=== PATIENT | female | born 1935 | race American Indian/Alaskan Native ===

== ENCOUNTER 2018-09-23 07:21 | Outpatient (CLI) | payer MEDICARE, OTHER | END 2018-09-23 07:22 | disposition home or self-care (01) | LOC: CARDIO 07:21 | DX: I25.10 Atherosclerotic heart disease of native coronary artery without angina pectoris (principal); E11.9 Type 2 diabetes mellitus without complications; Z95.5 Presence of coronary angioplasty implant and graft ==

== ENCOUNTER 2018-10-04 11:04 | Outpatient (CLI) | payer MEDICARE, OTHER | END 2018-10-04 11:05 | disposition home or self-care (01) | LOC: RAD 11:04 ==

== ENCOUNTER 2018-10-28 06:30 | Day surgery (SDC) | payer MEDICARE, OTHER ==
[2018-10-26 15:23] VITALS: BMI 26.9
[2018-10-28] MEDS ORDERED: Nitroglycerin 50mg in D5W 0 MG/0 ML BOTTLE IV ONE (07:03)
[2018-10-28] MEDS ORDERED: Iohexol 350mgl/ml 50 ML ONE (07:03)
[2018-10-28] MEDS ORDERED: Iodixanol 320 MG/ML 100 ML BOTTLE IV ONE (07:03)
[2018-10-28] MEDS ORDERED: Iodixanol 320 MG/ML 200 ML BOTTLE IV ONE (07:03)
[2018-10-28] MEDS ORDERED: Lidocaine 2% Inj (20ml) ONE (07:03)
[2018-10-28 07:09] LABS: BASO # 0.03 K/mm3 (0.0-2.0); BASO % 0.4 % (0.0-3.0); EOS # 0.2 (0.0-0.7); EOS % 2.2 % (1.5-5.0); HEMOGLOBIN 11.5 g/dL (12.0-16.0); LYMPH # 2.8 (1.2-3.4); MEAN CELL VOLUME 87.6 fl (80.0-105.0); MEAN CORPUSCULAR HEMOGLOBIN 27.4 pg (25.0-35.0); MEAN CORPUSCULAR HGB CONC 31.3 g/dl (31.0-37.0); MEAN PLATELET VOLUME 9.8 fl (7.0-11.0); MONO # 0.5 (0.1-0.6); MONO % 7.3 % (1.0-6.0); RBC 4.2 10^6/uL (3.5-6.1); RED CELL DISTRIBUTION WIDTH 15.7 % (11.5-14.5); WHITE BLOOD COUNT 6.7 10^3/uL (4.5-11.0)
[2018-10-28 07:14] LABS: INR 1.14; PROTHROMBIN TIME 12.9 SECONDS (9.4-12.5)
[2018-10-28 07:23] LABS: CALCIUM 9.3 mg/dL (8.4-10.5)
[2018-10-28 07:38] VITALS: RESP 18
[2018-10-28] MEDS ORDERED: Midazolam 2 MG/2 ML VIAL ONE ×2 (08:17→08:28)
[2018-10-28] MEDS ORDERED: Sodium Chloride 0.9% 1,000 ML IV SCH (09:00)
[2018-10-28 09:18] VITALS: TEMP 97.7
--- NOTE | 2018-10-28 12:03 | CARDCATH ---
PROCEDURE DATE: 10/28/2018 CARDIAC CATHETERIZATION HISTORY: The patient is an 82-year-old woman with a history of documented coronary artery disease as well as aortic valve replacement with TAVR who presents with an abnormal stress test. She suffers from hypertension, exertional dyspnea, diabetes mellitus and hypercholesterolemia. PROCEDURE: Left heart catheterization with coronary arteriography, supra-aortic valvular injection. The right femoral artery was cannulated with 6-[place] sheath. There were no complications. I performed moderate sedation which included the presence of an independent trained observer that assisted in monitoring the patient's level of consciousness and physiologic status. After administration of Versed and fentanyl, my intra service time was 30 minutes. Findings on catheterization revealed supra-aortic valvular injection revealed no aortic insufficiency across the TAVR valve. The patient had a right-dominant circulation. The RCA revealed a patent stent in its proximal portion with a 50% stenosis in the mid portion. The left main artery was unremarkable. The LAD and diagonal vessels revealed intimal irregularities without critical lesions. The circumflex artery revealed a 50% to 60% stenosis in the mid portion with RACHEAL-III flow. No stenting was performed. AngioSeal was used to close the femoral artery site. The patient tolerated the procedure well. In summary, the procedure revealed patent stents in the proximal RCA, 50% stenosis in the mid RCA. 50% to 60% stenosis in the mid circumflex artery with no aortic insufficiency across the prosthetic aortic valve. Given these findings, the patient's treatment will be continued medical therapy. She will continue a cardiac risk reduction program. Pasquale Sanchez MD
[2018-10-28 14:44] VITALS: BP 147/70; PULSE 70; O2SAT 95
== END 2018-10-28 14:45 | disposition home or self-care (01) ==
LOC: CATH 06:30
PROVIDERS: ATTEND Internal Medicine Cardiovascular Disease
DX: I25.10 Atherosclerotic heart disease of native coronary artery without angina pectoris (principal); I10 Essential (primary) hypertension; E78.00 Pure hypercholesterolemia, unspecified; E11.9 Type 2 diabetes mellitus without complications; Z95.2 Presence of prosthetic heart valve; Z95.5 Presence of coronary angioplasty implant and graft; Z79.84 Long term (current) use of oral hypoglycemic drugs
CPT/HCPCS: 36415; 80048; 80061; 85025; 85610; 85730; 86850; 86900; 93454; 99152; C1760; C1769; C2629; J1644; J2250; J3010; J7030; J7040; Q9966